=== PATIENT | female | born 1995 | race Caucasian/White ===

== ENCOUNTER → 2016-12-24 | Outpatient (CLI) | payer BC | LOC: FIMAGING 16:21 | PROVIDERS: ATTEND Midwife | DX: N83.01 Follicular cyst of right ovary (principal); N83.02 Follicular cyst of left ovary ==

== ENCOUNTER 2017-09-05 02:06 | Emergency (ER) | payer SELFPAY ==
[2017-09-05 02:20] VITALS: RESP 16; O2SAT 97
[2017-09-05] MEDS ORDERED: ONDANSETRON 4 MG/2 ML VIAL IVP ONE ×2 (02:30→03:23)
[2017-09-05 02:39] LABS: % IMMATURE GRANULYOCYTES 0.3 % (0.0-1.1); ABSOLUTE IMMATURE GRANULOCYTES 0.04 10^3/uL (0.00-0.10); ADD DIFF? NO; ADD MORPH? NO; ADD SCAN? NO; ATYPICAL LYMPHOCYTE FLAG 0 (0-99); FRAGMENT RBC FLAG 0 (0-99); HEMATOCRIT 44.7 % (38.0-47.0); HEMOGLOBIN 15.3 g/dL (12.6-16.3); LEFT SHIFT FLG 0 (0-99); LIPEMIA HEMOLYSIS FLAG 90 (0-99); MEAN CELL HEMOGLOBIN 28.7 pg (27.9-34.1); MEAN CELL HEMOGLOBIN CONCENTR. 34.2 g/dL (32.4-36.7); MEAN CELL VOLUME 83.7 fL (81.5-99.8); MEAN PLATELET VOLUME 9.6 fL (8.7-11.7); PLATELET CLUMPS FLAG 0 (0-99); PLATELET COUNT 261 10^3/uL (150-400); RED BLOOD CELL COUNT 5.34 10^6/uL (4.18-5.33); RED CELL DISTRIBUTION WIDTH 12.4 % (11.5-15.2)
[2017-09-05 02:46] LABS: ANION GAP 17 mEq/L (8-16); CALCIUM 9.2 mg/dL (8.5-10.4); CARBON DIOXIDE 23 mEq/l (22-31); CHLORIDE 103 mEq/L (97-110); CREATININE 0.7 mg/dL (0.6-1.0); GLOMERULAR FILTRATION RATE > 60; GLUCOSE 117 mg/dL (70-100); POTASSIUM 4.1 mEq/L (3.5-5.2); SODIUM 143 mEq/L (134-144)
[2017-09-05] MEDS ORDERED: NS 1,000 ML IV ONE (02:46)
--- NOTE | 2017-09-05 02:49 | EDPHY ---
H & P Stated Complaint: N/V Time Seen by Provider: 09/05/17 02:30 HPI/ROS: CHIEF COMPLAINT: Nausea and vomiting History by patient HISTORY OF PRESENT ILLNESS: 22-year-old woman presents complaining of 2 days of persistent nausea and then multiple episodes of vomiting for the last 8 hr. Patient was also had 2 episodes of thin watery, nonbloody diarrhea since the vomiting started. She complains of some upper abdominal pain which she feels is related to the vomiting and began after the vomiting. She also complains of pain in her back. She denies any dysuria, urgency frequency or hematuria. She denies any ill contacts. She denies any fever. Her last period began 2 days ago but was 1-2 weeks late. She continues to spot. She has never been before. She does have a history of PID. She is not actively using any contraceptives. She smokes occasional cigarettes and uses occasional alcohol. Her last drink was more than 2 weeks ago. She denies any marijuana use. 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 She is status post appendectomy and had some ovarian cyst removed at that time. REVIEW OF SYSTEMS: As in HPI, and all other systems reviewed and are negative Source: Patient - Personal History LMP (Females 10-55): Over 28 Days Ago Current Tetanus/Diphtheria Vaccine: Yes - Medical/Surgical History Hx Asthma: Yes Hx Chronic Respiratory Disease: No Hx Diabetes: No Hx Cardiac Disease: No Hx Renal Disease: No Hx Cirrhosis: No Hx Alcoholism: No Hx HIV/AIDS: No Hx Splenectomy or Spleen Trauma: No Other PMH: VSD as baby, migraines,MRSA in foot 5 years ago, ASTHMA. PSH: R ANKLE, APPY - Social History Smoking Status: Never smoked - Physical Exam Exam: General Appearance: Alert, nontoxic-appearing,. Eyes: Pupils equal and round, no pallor or injection. Mouth: Mucous membranes moist. Respiratory: Normal, effort, lungs are clear to auscultation. No wheezes, rales or rhonchi. Cardiovascular: Regular rate and rhythm. S1, S2, no murmurs, gallops or rubs appreciated Gastrointestinal: bowel sounds present, Abdomen is soft and nondistended, nontender, no masses, no Tinajero sign, no McBurney's point tenderness Back: No CVA tenderness, no bony tenderness Neurological: Awake, alert and oriented x 3, no pronator drift, normal gait, no pronator drift Skin: Warm and dry, no rashes. Musculoskeletal: No deformities or tenderness. Extremities: full range of motion, no edema Psychiatric: Patient has normal affect, there is no agitation. Constitutional: Initial Vital Signs Temperature (C) 36.9 C 09/05/17 02:10 Heart Rate 119 H 09/05/17 02:10 Respiratory Rate 16 09/05/17 02:10 Blood Pressure 124/90 H 09/05/17 02:10 O2 Sat (%) 97 09/05/17 02:10 O2 Delivery Mode Room Air Allergies/Adverse Reactions: codeine [Codeine] Allergy (Unknown, Verified 12/09/15 23:00) hydrocodone bitartrate [From Vicodin] Allergy (Unknown, Verified 12/09/15 23:00) lidocaine Allergy (Verified 12/09/15 23:06) Home Medications: Medication Instructions Recorded NK [No Known Home Meds] 09/05/17 Medical Decision Making ED Course/Re-evaluation: 22-year-old woman presents with nausea, vomiting, diarrhea and back pain and vaginal bleeding. Urine test is negative. Patient was given IV fluids and Zofran with some improvement her evaluation. She then complained of some recurrent nausea was given additional dose of Zofran as well as ketorolac for her back pain. Labs showed elevated white blood cell count and normal electrolytes. There is no evidence of urinary tract infection. Given the vomiting with watery diarrhea and benign abdominal exam I suspect GI infection at this point. Plan will be for discharge home with Zofran prepack and return worsening or new problems. Patient understands and is agreeable to this plan. - Data Points Laboratory Results: Laboratory Results 09/05/17 02:23 09/05/17 02:23 09/05/17 09/05/17 09/05/17 03:10 03:10 02:23 WBC RBC Hgb Hct MCV MCH MCHC RDW Plt Count MPV Neut % (Auto) Lymph % (Auto) [place] % (Auto) Eos % (Auto) Baso % (Auto) Nucleat RBC Rel Count Absolute Neuts (auto) Absolute Lymphs (auto) Absolute Monos (auto) Absolute Eos (auto) Absolute Basos (auto) Absolute Nucleated RBC Immature Gran % Immature Gran # Sodium 143 mEq/L mEq/L (134-144) Potassium 4.1 mEq/L mEq/L (3.5-5.2) Chloride 103 mEq/L mEq/L (97-110) Carbon Dioxide 23 mEq/l mEq/l (22-31) Anion Gap 17 mEq/L H mEq/L (8-16) BUN 19 mg/dL mg/dL (7-23) Creatinine 0.7 mg/dL mg/dL (0.6-1.0) Estimated GFR > 60 Glucose 117 mg/dL H mg/dL (70-100) Calcium 9.2 mg/dL mg/dL (8.5-10.4) Urine Color YELLOW Urine Appearance CLEAR Urine pH 7.5 (5.0-7.5) Ur Specific [place] 1.010 (1.002-1.030) Urine Protein NEGATIVE (NEGATIVE) Urine Ketones 1+ H (NEGATIVE) Urine Blood 3+ H (NEGATIVE) Urine Nitrate NEGATIVE (NEGATIVE) Urine Bilirubin NEGATIVE (NEGATIVE) Urine Urobilinogen 0.2 EU EU (0.2-1.0) Ur Leukocyte Esterase NEGATIVE (NEGATIVE) Urine RBC 5-10 /hpf H /hpf (0-3) Urine WBC 0-1 /hpf /hpf (0-3) Ur Epithelial Cells TRACE /lpf /lpf (NONE-1+) Urine Glucose NEGATIVE (NEGATIVE) Urine Test NEGATIVE 09/05/17 02:23 WBC 13.32 10^3/uL H 10^3/uL (3.80-9.50) RBC 5.34 10^6/uL H 10^6/uL (4.18-5.33) Hgb 15.3 g/dL g/dL (12.6-16.3) Hct 44.7 % % (38.0-47.0) MCV 83.7 fL fL (81.5-99.8) MCH 28.7 pg pg (27.9-34.1) MCHC 34.2 g/dL g/dL (32.4-36.7) RDW 12.4 % % (11.5-15.2) Plt Count 261 10^3/uL 10^3/uL (150-400) MPV 9.6 fL fL (8.7-11.7) Neut % (Auto) 90.8 % H % (39.3-74.2) Lymph % (Auto) 4.1 % L % (15.0-45.0) [place] % (Auto) 4.4 % L % (4.5-13.0) Eos % (Auto) 0.2 % L % (0.6-7.6) Baso % (Auto) 0.2 % L % (0.3-1.7) Nucleat RBC Rel Count 0.0 % % (0.0-0.2) Absolute Neuts (auto) 12.12 10^3/uL H 10^3/uL (1.70-6.50) Absolute Lymphs (auto) 0.54 10^3/uL L 10^3/uL (1.00-3.00) Absolute Monos (auto) 0.58 10^3/uL 10^3/uL (0.30-0.80) Absolute Eos (auto) 0.02 10^3/uL L 10^3/uL (0.03-0.40) Absolute Basos (auto) 0.02 10^3/uL 10^3/uL (0.02-0.10) Absolute Nucleated RBC 0.00 10^3/uL 10^3/uL (0-0.01) Immature Gran % 0.3 % % (0.0-1.1) Immature Gran # 0.04 10^3/uL 10^3/uL (0.00-0.10) Sodium Potassium Chloride Carbon Dioxide Anion Gap BUN Creatinine Estimated GFR Glucose Calcium Urine Color Urine Appearance Urine pH Ur Specific [place] Urine Protein Urine Ketones Urine Blood Urine Nitrate Urine Bilirubin Urine Urobilinogen Ur Leukocyte Esterase Urine RBC Urine WBC Ur Epithelial Cells Urine Glucose Urine Test Medications Given: Discontinued Medications Sodium Chloride (Ns) 1,000 mls @ 0 mls/hr IV EDNOW ONE; Wide Open PRN Reason: Protocol Stop: 09/05/17 02:47 Last Admin: 09/05/17 02:48 Dose: 1,000 mls Ondansetron HCl (Zofran) 4 mg IVP EDNOW ONE Stop: 09/05/17 02:31 Last Admin: 09/05/17 02:35 Dose: 4 mg Departure - Departure Disposition: Home, Routine, Self-Care Clinical Impression: Nausea vomiting and diarrhea Condition: Good Instructions: Gastroenteritis (ED) Additional Instructions: You were seen by Dr. Candace Mahajan today. Rest and drink plenty of fluids. You may eat you what you feel like eating. Take Zofran as needed for nausea and vomiting. Take ibuprofen and/or Tylenol for pain and fever. Return for any worsening or new concerns.
[2017-09-05 03:16] LABS: COLOR YELLOW; LEUKOCYTE ESTERASE,URINE NEGATIVE (NEGATIVE); NITRITE,URINE NEGATIVE (NEGATIVE); PH,URINE 7.5 (5.0-7.5)
[2017-09-05 03:21] LABS: WBC,URINE 0-1 /hpf (0-3)
[2017-09-05] MEDS ORDERED: KETOROLAC 30 MG/1 ML SDV IVP ONE (03:23)
[2017-09-05] MEDS ORDERED: ONDANSETRON 4MG PREPACK#2 BTL TAKEHOME ONE (03:27)
[2017-09-05 03:33] VITALS: BP 105/73; TEMP 98.6
[2017-09-05 03:40] VITALS: PULSE 91
== END 2017-09-05 03:45 | disposition home or self-care (01) ==
LOC: CED 02:06
DX: R11.2 Nausea with vomiting, unspecified (principal); R19.7 Diarrhea, unspecified; E86.9 Volume depletion, unspecified; J45.909 Unspecified asthma, uncomplicated
CPT/HCPCS: 80048-PO; 81003-PO; 81015-PO; 81025-PO; 85025-PO; 96374; J1885; J2405